=== PATIENT | female | born 1985 | race Caucasian/White ===

== ENCOUNTER 2017-03-18 02:30 | Observation (INO) | payer OTHER ==
[~2017-03-18] VITALS: Ht 175.3 cm; Wt 113.7 kg
[~2017-03-18 02:30] MED LIST: Ceftin PO; DEXILANT60 MG PO; FIORICET WI1 CAPSULE PO; LOESTRIN FE PO; MAXALT MLT10 MG PO; MAXALT5 MG PO; MEGACE40 MG PO; MICROGESTIN FE1 EAC1 PO; MOTRIN600 M1 PO; MOTRIN600 MG PO; MULTIPLE VITAM1 EAC1 PO; MULTIVITAMIN1 EAC2 PO; Medrol Dosepak PO; NOHOMEMEDS; OMNICEF300 M1 PO; PANTOPRAZOLE SO40 MG PO; PRILOSEC20 MG PO; PROTONIX40 MG PO; RELPAX40 MG PO; TOPAMAX100 MG PO; TOPAMAX25 MG PO; TOPAMAX50 MG PO; TOPIRAMATE50 MG PO; TYLENOL EXTRA500 MG PO; XARELTO15 MG PO; XARELTO20 MG PO; ZANTAC150 MG PO; ZANTAC300 MG PO; [UNRECOGNIZED DRUG - OTHER] PO
[2017-03-18 03:20] LABS: CARBON DIOXIDE (BICARBONATE) 25.4 MEQ/L (20-31)
[2017-03-18 03:27] LABS: HEMATOCRIT 42.9 % (36.0-46.0); MCH 31.5 PG (29.0-34.0); MCHC 34.5 G/DL (30.0-36.0); MCV 91.3 FL (83-99); MEAN PLAT.VOLUME 10.1 uM^3 (9.5-12.4); PLATELET COUNT 166 K/uL (156-360); RBC DIS.WIDTH-CV 12.9 % (11.8-14.6); RBC DIS.WIDTH-SD 43.2 % (39-53); WHITE BLOOD COUNT 7.2 K/uL (4.1-10.2)
[2017-03-18 03:38] LABS: CHLORIDE 105 mEq/L (99-109); POTASSIUM 3.8 mEq/L (3.7-5.4); SODIUM 137 mEq/L (136-147)
[2017-03-18 03:40] LABS: GLUCOSE 102 mg/dL (70-99)
[2017-03-18 03:42] LABS: ANION GAP 10 MEQ/L (2-14); INTER. NORMALIZED RATIO 1.3; PROTHROMBIN TIME 14.2 SEC (10.2-12.9); TOTAL BILIRUBIN 1.4 mg/dL (0.0-1.0)
[2017-03-18 03:44] LABS: ALKALINE PHOSPHATASE 416 IU/L (3-129); GFR ESTIMATE (CALCULATED) > 59 mL/min/
[2017-03-18 03:45] LABS: UREA NITROGEN (BUN) 11 mg/dL (9-23)
[2017-03-18 03:46] LABS: DIRECT BILIRUBIN 0.9 mg/dL (0.0-0.3)
[2017-03-18 03:47] LABS: LIPASE 36 U/L (1.0-51.0)
[2017-03-18 03:53] LABS: TROP-I INTERPRETATION NEGATIVE; TROPONIN-I < 0.01 ng/mL (0.0-0.30)
[2017-03-18 03:54] LABS: QUANTITATIVE HCG < 4.0 MIU/ML
[2017-03-18 03:54] LABS: INTERNAL CONTROL VALID? YES; MONOSPOT (MONONUCLEOSIS SEROL) NEGATIVE
[2017-03-18 05:06] LABS: ABS NEUTROPHIL COUNT 2.9; ATYPICAL LYMPHOCYTE 41.6 %; EOSINOPHIL ABS CT 0; INSTRUMENT ABS NEUTROPHIL CT 1.7 K/uL; LYMPHOCYTES 14.2 % (15.0-45.0); PLAT.SUFFICIENCY ADEQUATE; SEG.NEUTROPHILS 31.9 % (46.0-76.0); SMUDGE CELLS 11.5
[2017-03-18 05:07] LABS: BAND NEUTROPHILS 8.8 % (0-8.0)
[2017-03-18 07:34] VITALS: BP 119/60
[2017-03-18] MEDS ORDERED: TUMS DUAL ACTI1 EACH PO (07:53)
[2017-03-18 10:47] LABS: HBSG INDEX 0.17
[2017-03-18 10:48] LABS: ANTI-HEPATITIS A VIRUS (IGM) Nonreactive; HAV INDEX 0.21; HPCA INDEX 0.27
[2017-03-18 10:49] LABS: ANTI-HEPATITIS B CORE (IGM) Nonreactive; HBC IgM INDEX 0.16; HIV-1/2 AB/AG COMBO Nonreactive
[2017-03-18 11:37] VITALS: BP 123/63
[2017-03-18] MEDS ORDERED: LEVOFLOXACIN750 MG PO (11:54)
[2017-03-18] MEDS ORDERED: BRIMONIDINE TAR10 ML RIGHT EYE (11:55)
[2017-03-18 15:30] VITALS: BP 116/65
[2017-03-18 20:11] VITALS: BP 101/52
[2017-03-19 05:33] LABS: HEMATOCRIT 37.9 % (36.0-46.0); MCH 31.4 PG (29.0-34.0); MCHC 33.2 G/DL (30.0-36.0); MCV 94.5 FL (83-99); MEAN PLAT.VOLUME 9.9 uM^3 (9.5-12.4); PLATELET COUNT 159 K/uL (156-360); RBC DIS.WIDTH-CV 13.3 % (11.8-14.6); RBC DIS.WIDTH-SD 45.6 % (39-53); RED BLOOD COUNT 4.01 M/uL (3.80-5.20); WHITE BLOOD COUNT 7.9 K/uL (4.1-10.2)
[2017-03-19 05:38] VITALS: BP 111/55
[2017-03-19 06:15] LABS: ANION GAP 9 MEQ/L (2-14); CHLORIDE 110 MEQ/L (99-109); GFR ESTIMATE (CALCULATED) > 59 mL/min/; GLUCOSE 92 mg/dL (70-99); POTASSIUM 4.3 MEQ/L (3.7-5.4); SAMPLE HEMOLYSIS CHECK 0; SAMPLE ICTERIC CHECK 0; SAMPLE LIPEMIA CHECK 0; SODIUM 142 MEQ/L (136-147); UREA NITROGEN (BUN) 6 mg/dL (9-23)
[2017-03-19 06:26] LABS: ALKALINE PHOSPHATASE 345 IU/L (3-129); TOTAL BILIRUBIN 1.6 MG/DL (0.0-1.0)
[2017-03-19 08:30] VITALS: BP 115/68
[2017-03-19 10:50] LABS: AMPHETAMINES QUANT VALUE 0 NG/ML; BARBITUATES QUANT VALUE 0 NG/ML; BENZODIAZEPINES QUANT VALUE 0 NG/ML; BENZODIAZEPINES, URINE SCREEN Negative (200 ng/mL); MARIJUANA QUANT VALUE 0 NG/ML; OPIATES QUANTITATIVE VALUE 0 NG/ML; PHENCYCLIDINE QUANT VALUE 0 NG/ML
[2017-03-19 11:45] VITALS: BP 110/66
[2017-03-19 14:23] LABS: ANTI-EPSTEIN-BARR NUCLEAR AG NEGATIVE; ANTI-EPSTEIN-BARR VCA IGG NEGATIVE; ANTI-EPSTEIN-BARR VCA IGM POSITIVE
[2017-03-19 19:00] VITALS: BP 102/58
[2017-03-19 23:41] VITALS: BP 106/63
[2017-03-20 07:20] VITALS: BP 113/61
== END 2017-03-20 12:04 | disposition home or self-care (01) ==
LOC: EXP 02:30 → EME 02:30 → EDOF 05:23 → 5WEST 05:23 → EDOF 05:23 → ENRESERV 05:25 → 5WEST 07:24
PROVIDERS: Emergency Medicine; Hospitalist; Physician Assistant
DX: B27.00 Gammaherpesviral mononucleosis without complication (principal); R50.9 Fever, unspecified; R74.0 Nonspecific elevation of levels of transaminase and lactic acid dehydrogenase [LDH]; K21.9 Gastro-esophageal reflux disease without esophagitis; G43.909 Migraine, unspecified, not intractable, without status migrainosus; Z86.711 Personal history of pulmonary embolism; Z90.49 Acquired absence of other specified parts of digestive tract
CPT/HCPCS: 71020; 76705; 80048; 80074; 80076; 80306 90; 81003; 82803; 83605; 83690; 83880; 84484; 84702; 85025; 85027; 85610; 86308; 86645 90; 86664; 86665; 86703; 86790 90; 87040; 87207; 99281; 99285; G0378; J2405; J7030; Q0169

== ENCOUNTER 2017-08-30 17:41 | Inpatient (IN) | payer OTHER ==
[~2017-08-30] VITALS: Ht 172.7 cm; Wt 112.5 kg
[~2017-08-30 17:41] MED LIST changes: +ACIPHEX20 MG PO; +BRIMONIDINE TAR10 ML RIGHT EYE; +LEVOFLOXACIN750 MG PO
[2017-08-30 19:48] LABS: APPEARANCE SL.HAZY ((CLEAR)); BILIRUBIN NEGATIVE; BLOOD NEGATIVE; COLOR YELLOW ((YELLOW)); GLUCOSE (STRIP) NEGATIVE; KETONES NEGATIVE; LEUKOCYTES NEGATIVE; NITRITE NEGATIVE; PROTEIN (STRIP) NEGATIVE; SPECIFIC GRAVITY 1.015 (1.000-1.030); UROBILINOGEN 0.2 MG/DL (0.2-1.0)
[2017-08-30 19:50] LABS: HEMATOCRIT 39.9 % (36.0-46.0); HEMOGLOBIN 13.8 G/DL (11.9-15.5); MCH 31.1 PG (29.0-34.0); MCHC 34.6 G/DL (30.0-36.0); MCV 89.9 FL (83-99); PLATELET COUNT 282 K/uL (156-360); RBC DIS.WIDTH-CV 12.2 % (11.8-14.6); RBC DIS.WIDTH-SD 40.3 % (39-53); RED BLOOD COUNT 4.44 M/uL (3.80-5.20); WHITE BLOOD COUNT 7.8 K/uL (4.1-10.2)
[2017-08-30 19:55] LABS: BACTERIA RARE /HPF; EPITHELIAL CELLS 1+ /HPF; MUCUS TRACE /LPF; RED BLOOD CELLS 0-5 /HPF (0-5); UCUL ADDED? NO; WHITE BLOOD CELLS 0-5 /HPF (0-5)
[2017-08-30 20:05] LABS: ALBUMIN 4.7 g/dL (3.2-4.8); CHLORIDE 102 mEq/L (99-109); SODIUM 138 mEq/L (136-147)
[2017-08-30] MEDS ORDERED: ADVIL200 MG PO (20:06)
[2017-08-30] MEDS ORDERED: TYLENOL EXTRA500 MG PO (20:06)
[2017-08-30 20:08] LABS: GLUCOSE 89 mg/dL (70-99); TOTAL PROTEIN 8.3 g/dL (6.4-8.3)
[2017-08-30 20:10] LABS: TOTAL BILIRUBIN 0.4 mg/dL (0.0-1.0)
[2017-08-30 20:11] LABS: ALKALINE PHOSPHATASE 59 IU/L (3-129); CREATININE 0.8 mg/dL (0.6-1.3); GFR ESTIMATE (CALCULATED) > 59 mL/min/
[2017-08-30 20:12] LABS: UREA NITROGEN (BUN) 15 mg/dL (9-23)
[2017-08-30 20:13] LABS: AST (GOT) 18 IU/L (2-34)
[2017-08-30 20:14] LABS: ALT (GPT) 21 IU/L (3-49)
[2017-08-30 20:31] LABS: MONOSPOT (MONONUCLEOSIS SEROL) NEGATIVE
[2017-08-30 22:51] VITALS: BP 135/64
[2017-08-31 05:50] LABS: HEMATOCRIT 36.4 % (36.0-46.0); HEMOGLOBIN 12.2 G/DL (11.9-15.5); MCH 30.9 PG (29.0-34.0); MCHC 33.5 G/DL (30.0-36.0); MCV 92.2 FL (83-99); PLATELET COUNT 242 K/uL (156-360); RBC DIS.WIDTH-CV 12.4 % (11.8-14.6); RBC DIS.WIDTH-SD 42.5 % (39-53); RED BLOOD COUNT 3.95 M/uL (3.80-5.20); WHITE BLOOD COUNT 6.2 K/uL (4.1-10.2)
[2017-08-31 06:47] LABS: ALBUMIN 3.8 G/DL (3.2-4.8); ALKALINE PHOSPHATASE 46 IU/L (3-129); ALT (GPT) 14 IU/L (3-49); AST (GOT) 12 IU/L (2-34); CHLORIDE 108 MEQ/L (99-109); CREATININE 0.8 MG/DL (0.6-1.3); GFR ESTIMATE (CALCULATED) > 59 mL/min/; GLUCOSE 82 mg/dL (70-99); POTASSIUM 4.5 MEQ/L (3.7-5.4); SODIUM 142 MEQ/L (136-147); TOTAL BILIRUBIN 0.5 MG/DL (0.0-1.0); TOTAL PROTEIN 6.7 G/DL (6.4-8.3); UREA NITROGEN (BUN) 14 mg/dL (9-23)
[2017-08-31 07:46] VITALS: BP 114/75
[2017-08-31 08:20] VITALS: BP 108/60
[2017-08-31 08:21] VITALS: BP 98/60
[2017-08-31 08:22] VITALS: BP 98/60
[2017-08-31 15:46] VITALS: BP 106/62
[2017-09-01 00:39] VITALS: BP 90/49
[2017-09-01 04:00] VITALS: BP 88/52
[2017-09-01 07:49] VITALS: BP 90/51
[2017-09-01] MEDS ORDERED: ZOFRAN4 MG PO (11:32)
[2017-09-01] MEDS ORDERED: DOXYCYCLINE HY100 M3 PO (11:32)
[2017-09-01 22:23] LABS: BASOPHIL (%) 0.4 % (0-1); EOSINOPHIL (%) 2.6 % (0-5); EOSINOPHIL COUNT 0.2 K/uL (0-0.3); IMMATURE GRANULOCYTE (%) 0.4 % (0.0-0.7); LYMPHOCYTE (%) 36.8 % (15-42); LYMPHOCYTE COUNT 2.9 K/uL (1.0-2.8); MONOCYTE (%) 5.2 % (3-12); MONOCYTE COUNT 0.4 K/uL (0-0.8); NEUTROPHIL (%) 54.6 % (45-76); NEUTROPHIL COUNT 4.3 K/uL (1.8-6.4)
== END 2017-09-01 11:46 | disposition home or self-care (01) | DRG 864 ==
LOC: EXP 17:41 → EME 17:41 → 5SOUTH 21:27 → EDOF 21:27 → ENRESERV 21:29 → 5SOUTH 22:42
PROVIDERS: Emergency Medicine; Hospitalist; Physician Assistant
DX: R50.9 Fever, unspecified (principal); R65.10 Systemic inflammatory response syndrome (SIRS) of non-infectious origin without acute organ dysfunction; K21.9 Gastro-esophageal reflux disease without esophagitis; G43.909 Migraine, unspecified, not intractable, without status migrainosus; Z86.711 Personal history of pulmonary embolism; Z90.49 Acquired absence of other specified parts of digestive tract; Z80.3 Family history of malignant neoplasm of breast; Z82.49 Family history of ischemic heart disease and other diseases of the circulatory system; Z83.3 Family history of diabetes mellitus
CPT/HCPCS: 36415; 71046; 80048; 80053; 81003; 85007; 85025; 85027; 85060; 86308; 86664; 86665; 87040; 87207; 99281; 99285; J0696; J2405; J7030; J7050